=== PATIENT | male | born 1980 | race Caucasian/White ===

== ENCOUNTER 2021-08-31 12:51 | Emergency (ER) | payer SELFPAY ==
[~2021-08-31] VITALS: Ht 167.6 cm; Wt 70.0 kg
[2021-08-31 13:03] VITALS: BP 102/61
== END 2021-08-31 13:42 | disposition left against medical advice (07) ==
LOC: ER 12:51
DX: R10.9 Unspecified abdominal pain (principal); Z53.21 Procedure and treatment not carried out due to patient leaving prior to being seen by health care provider
CPT/HCPCS: 99283